=== PATIENT | female | born 1965 | race Caucasian/White ===

== ENCOUNTER 2022-12-17 01:23 | Emergency (ER) | payer BC, SELFPAY ==
[2022-12-17] VITALS (17 sets, daily range): BP systolic 92–127; BP diastolic 57–99; PULSE 69–155; RESP 16–18; TEMP 36.7; O2SAT 96–99; BMI 29.4
[2022-12-17] MEDS: dilTIAZem 5 MG/ML inj 10 MG IVP (01:46)
[2022-12-17] MEDS: 0.9 % SODIUM CHLORIDE 1000 ml 1,000 ML IV (02:00)
[2022-12-17 02:03] LABS: Basophils Absolute Auto 0.03 K/uL (0.00-0.30); Basophils Percent Auto 0.4 % (0.0-3.0); Eosinophils Percent Auto 1.3 % (0.0-7.0); Hematocrit 42.2 % (33.0-51.0); Hemoglobin* 14.7 gm/dL (12.0-16.0); Immature Granulocytes Abs Auto 0.01 K/uL (0.00-0.30); Immature Granulocytes Pct Auto 0.1 %; Lymphocytes Percent Auto 18.5 % (20-44); Mean Corpuscular HGB Conc 35 gm/dL (32-36); Mean Corpuscular Hemoglobin 30 pg (26-34); Mean Corpuscular Volume 87 fL (80-100); Monocytes Percent Auto 5.8 % (0.0-11.0); Neutrophils Percent Auto 73.9 % (42.0-72.0); Platelet Count* 200 K/uL (140-440); RDW Coefficient of Variation % 11.7 % (11.5-15.5); Red Blood Count 4.83 m/uL (4.00-5.20); White Blood Count* 7.53 K/uL (4.50-11.00)
[2022-12-17 02:08] LABS: Slide Review Reflex No
[2022-12-17 02:15] LABS: Chloride* 110 mmol/L (96-114); Sodium* 141 mmol/L (135-149)
[2022-12-17 02:16] LABS: Potassium* 3.6 mmol/L (3.6-5.1)
[2022-12-17 02:18] LABS: Creatinine* 0.6 mg/dL (0.5-1.5); Est. Creatinine Clearance* 105.51; Estimated Glomerular Filt Rate 103 ml/min
[2022-12-17 02:19] LABS: Blood Urea Nitrogen* 15 mg/dL (7-30); Calcium* 9.3 mg/dL (8.4-10.6); Carbon Dioxide* 23 mmol/L (20-32); Glucose* 126 mg/dL (60-115); Magnesium* 1.9 mg/dL (1.5-2.6)
[2022-12-17 02:33] LABS: Troponin I* < 0.01 ng/mL (0.01-0.04)
[2022-12-17] MEDS: PROPOFOL 10 MG/ML INJ 100 MG IVP (02:35)
--- NOTE | 2022-12-17 02:48 | ED_ITS ---
HPI - General Adult General Date Seen: 12/17/22 Chief complaint: Arrhythmia/Palpitations Stated complaint: Afib Time Seen by Provider: 12/17/22 01:29 Source: patient Mode of arrival: ambulatory Limitations: no limitations History of Present Illness HPI narrative: Patient is a 57-year-old female with history of atrial fibrillation. She has been cardioverted for as previously including once a days ago. Tonight she is getting ready for bed and noticed that her heart sped up and began pounding. There is no chest or shortness of breath. She can always tell when she goes into atrial fibrillation because of her rate. Her only medication is Toprol-XL 25 mg daily. Her cardioversion last week was at [facility] calculated chads Vasc score of one in chose not to anticoagulate her. She had some leftover Eliquis and has taken a couple of doses. She is instructed follow-up with cardiology but has not had a chance. Related Data Home Medications Medication Instructions Recorded Confirmed metoprolol succinate 25 mg 25 mg PO DAILY 12/17/22 12/17/22 tablet,extended release 24 hr Allergies Allergy/AdvReac Type Severity Reaction Status Date / Time No Known Drug Allergies Allergy Verified 12/17/22 01:46 Review of Systems Narrative: Review of systems is outlined above otherwise noted to be negative. Exam Narrative: Exam Narrative: Vitals noted. HEENT: Conjunctiva clear. Tympanic membranes are pearly white bilaterally. Posterior pharynx is clear without erythema or exudate. Neck is supple without adenopathy, thyromegaly, carotid bruit. Lungs: Clear to auscultation in all molina. No wheezes, rales, rhonchi. Heart: Irregularly irregular rhythm with a rate of 150. No murmur. Good femoral and posterior tibial pulses. Abdomen: Soft and nontender. No guarding, rigidity, rebound. Bowel sounds are normal. No palpable masses. Extremities: No cyanosis or edema. Good distal pulses. Skin: No abnormalities noted of the exposed skin. Neurologic: Awake, alert, fully oriented. Neurologic exam is nonfocal. Const: Vital Signs, click to edit/add: Vital Signs - 24 hr 12/17/22 01:43 Temperature 98.0 F Pulse Rate [Right Pulse Oximeter] 99 Respiratory Rate 18 Blood Pressure [Ri ght Upper Arm] 127/90 H Pulse Oximetry 99 Oxygen Delivery Me thod Room Air Documenting provider has reviewed patient's vital signs: yes Course Course Hospital Course: Patient was seen and examined. Her initial EKG showed atrial fibrillation with a rate of 150. No acute ST or T-wave changes. Labs are ordered. Patient is placed on a surveillance system monitor with continuous O2 sats. Reevaluation(s) Reevaluation #1: CBC, BMP are normal. Troponin is 0. Magnesium is 1.9. Written consent for cardioversion is signed. Dr. Csota is also present to assist with conscious sedation. Reevaluation #2: With three nurses present as well as myself and Dr. Costa. The patient Is given propofol 100 mg IV. After about 2 minutes she was adequately sedated and she received a synchronized cardioversion with 75 joules x1. This successfully returned sinus rhythm with a rate of 90. No ST or T-wave changes. Patient was monitored until the sedation had worn off and discharged into the care of her . Vital Signs Vital signs: Initial Vital Signs Temperature 98.0 F 12/17/22 01:43 Temperature Source Temporal Artery Scan 12/17/22 01:43 Pulse Rate 99 12/17/22 01:43 Respiratory Rate 18 12/17/22 01:43 Blood Pressure 127/90 H 12/17/22 01:43 Blood Pressure Mean 102 12/17/22 01:43 Blood Pressure Position Sitting 12/17/22 01:43 Pulse Oximetry 99 12/17/22 01:43 Oxygen Delivery Method 12/17/22 01:43 Vital Signs Temperature 98.0 F 12/17/22 01:43 Pulse Rate 99 12/17/22 01:43 Respiratory Rate 18 12/17/22 01:43 Blood Pressure 127/90 H 12/17/22 01:43 Pulse Oximetry 99 12/17/22 01:43 Oxygen Delivery Method 12/17/22 01:43 Temperature 98.0 F 12/17/22 01:43 Pulse Rate 99 12/17/22 01:43 Respiratory Rate 18 12/17/22 01:43 Blood Pressure 127/90 H 12/17/22 01:43 Pulse Oximetry 99 12/17/22 01:43 Oxygen Delivery Method 12/17/22 01:43 Medical Decision Making Lab Data Labs: Lab Results 12/17/22 12/17/22 Range/Units 01:50 01:50 WBC 7.53 (4.50-11.00) K/uL RBC 4.83 (4.00-5.20) m/uL Hgb 14.7 (12.0-16.0) gm/dL Hct 42.2 (33.0-51.0) % MCV 87 (80-100) fL MCH 30 (26-34) pg MCHC 35 (32-36) gm/dL RDW Coeff of Therese 11.7 (11.5-15.5) % Plt Count 200 (140-440) K/uL Neut % (Auto) 73.9 H (42.0-72.0) % Lymph % (Auto) 18.5 L (20-44) % Mckean % (Auto) 5.8 (0.0-11.0) % Eos % (Auto) 1.3 (0.0-7.0) % Baso % (Auto) 0.4 (0.0-3.0) % Neut # (Auto) 5.60 (1.7-7.0) K/uL Lymph # (Auto) 1.40 (0.90-2.90) K/uL Mckean # (Auto) 0.40 (0.00-0.90) K/UL Eos # (Auto) 0.10 (0.00-0.50) K/uL Baso # (Auto) 0.03 (0.00-0.30) K/uL Sodium 141 (135-149) mmol/L Potassium 3.6 (3.6-5.1) mmol/L Chloride 110 (96-114) mmol/L Carbon Dioxide 23 (20-32) mmol/L BUN 15 (7-30) mg/dL Creatinine 0.6 (0.5-1.5) mg/dL Estimated Creat Clear 105.51 Estimated GFR 103 ml/min Glucose 126 H (60-115) mg/dL Calcium 9.3 (8.4-10.6) mg/dL Magnesium 1.9 (1.5-2.6) mg/dL Troponin I < 0.01 L (0.01-0.04) ng/mL Discharge Plan Discharge Clinical Impression: Atrial fibrillation with rapid ventricular response Patient Disposition: Home, Self-Care Condition: Improved Additional Instructions: Increase your metoprolol up to 50 mg daily. Stay hydrated. Take an [id number] magnesium supplement. Resume taking Eliquis 5 mg twice daily. 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 Prescriptions: No Action metoprolol succinate 25 mg tablet extended release 24 hr 25 mg PO DAILY Label Comments: TAKE 1 TABLET BY MOUTH IN THE EVENING. MAY TAKE ADDITIONAL 1/2 TABLET NEEDED Follow Up/Referrals: Provider,Not a Local [Primary Care Provider] - Stand Alone Forms: [employer] Info Instructions
== END 2022-12-17 04:08 | disposition home or self-care (01) ==
PROVIDERS: Emergency Provider Family Medicine
DX: I48.20 Chronic atrial fibrillation, unspecified (principal)
CPT/HCPCS: 36415; 80048; 83735; 84484; 85025; 92960; 93005; 99156; 99284; 99285; J2704; J7030